=== PATIENT | male | born 1970 | race Hispanic/Latino ===

== ENCOUNTER 2018-01-17 19:35 | Emergency (ER) | payer BC ==
[~2018-01-17] VITALS: Ht 172.7 cm; Wt 85.0 kg
[2018-01-17] MEDS ORDERED: WARFARIN SODIUM5 MG PO (19:57)
[2018-01-17] MEDS ORDERED: METFORMIN HCL1000 MG PO (19:57)
[2018-01-17] MEDS ORDERED: ATORVASTATIN CA10 MG PO (19:57)
[2018-01-17] MEDS ORDERED: GLIPIZIDE5 M2 PO (19:58)
[2018-01-17] MEDS ORDERED: LOPRESSOR25 M1 PO (19:58)
[2018-01-17] MEDS ORDERED: COUMADIN5 MG PO (20:19)
[2018-01-17] MEDS ORDERED: METFORMIN500 M2 PO (20:19)
[2018-01-17] MEDS ORDERED: KEFLEX500 M1 PO (20:21)
[2018-01-17 20:35] VITALS: BP 141/89
== END 2018-01-17 20:35 | disposition home or self-care (01) | DRG 605 ==
LOC: ED 19:35
DX: S91.331A Puncture wound without foreign body, right foot, initial encounter (principal); E11.9 Type 2 diabetes mellitus without complications; W22.8XXA Striking against or struck by other objects, initial encounter; Y92.89 Other specified places as the place of occurrence of the external cause; Z95.2 Presence of prosthetic heart valve